=== PATIENT | female | born 1980 | race Caucasian/White ===

== ENCOUNTER 2018-09-11 07:59 | Emergency (ER) | payer BC, OTHER ==
[2018-09-11] MEDS ORDERED: Lactated Ringers 1,000 ML ONE (08:37)
[2018-09-11] MEDS ORDERED: Ketorolac 30 MG/ML SDV IVPUSH ONE (08:44)
[2018-09-11 08:52] LABS: CHLORIDE,CL 102 mEq/L (98-106); SODIUM,NA 139 mEq/L (136-145)
[2018-09-11] MEDS ORDERED: Lactated Ringers 1,000 ML IV SCH (09:00)
[2018-09-11] MEDS ORDERED: Ondansetron 4 MG/2 ML SDV IVPUSH PRN (09:01)
--- NOTE | 2018-09-11 12:23 | EDM.PDOC ---
ED HPI GENERAL MEDICAL PROBLEM - General Chief Complaint: General Stated Complaint: BACK PAIN Time Seen by Provider: 09/11/18 08:43 Source of Information: Reports: Patient History Limitations: Reports: No Limitations - History of Present Illness INITIAL COMMENTS - FREE TEXT/NARRATIVE: Denise is a 38 yo female who presents to the ER ambulatory with concerns of right pelvic pain radiating into her right flank area. She admits she felt fine upon waking up this morning and went to work out on the treadmill. She states the pain was abrupt onset in the groin and started getting back/flank pain roughly an hour later. She states it would make her double over. States her back pain initially worsened with movement and she was unable to find a comfortable position. She found that by sitting up it would relieve some discomfort and if she lied back and relaxed it seemed to make the pain worse. She states she took some ibuprofen with no relief. Tried getting into the clinic and was scheduled at 10:00am this morning. Pain intensified and was unable to wait that long. She states her last period was August 19 and it has been normal. She states is unlikely with history of tubal after her last 2 years ago. She hasn't had any change in bowel habits. States she typically only has a bowel movement every couple of days. She denies any fevers. The pain has caused her to be quite nauseated but denies any vomiting. Back Pain Score (Numeric/FACES): 6 Pelvic Pain Score (Numeric/FACES): 3 - Related Data Allergies Allergy/AdvReac Type Severity Reaction Status Date / Time amoxicillin Allergy Cannot Verified 09/11/18 08:13 Remember Home Meds: Home Meds . [No Known Home Meds] 09/11/18 [History] Past Medical History DIRECTOR FAMILY History: Reports: - Past Surgical History HEENT Surgical History: Reports: Oral Surgery, Tonsillectomy Musculoskeletal Surgical History: Reports: Other (See Below) Other Musculoskeletal Surgeries/Procedures:: ACL SURGERY. BREAST REDUCTION Social & Family History - Family History Family Medical History: Noncontributory - Tobacco Use Smoking Status *Q: Never Smoker - Caffeine Use Caffeine Use: Reports: Coffee, Soda - Recreational Drug Use Recreational Drug Use: No ED ROS GENERAL - Review of Systems Review Of Systems: See Below Constitutional: Denies: Fever, Chills HEENT: Reports: No Symptoms Respiratory: Reports: No Symptoms Cardiovascular: Reports: No Symptoms Endocrine: Reports: No Symptoms GI/Abdominal: Reports: Abdominal Pain, Flatus, Nausea, Vomiting. Denies: Bloody Stool, Constipation, Diarrhea, Distension, Hematochezia, Melena : Reports: No Symptoms. Denies: Discharge, Dysuria, Hematuria, Irregular Menses, Pain, Urinary Retention Skin: Reports: No Symptoms Neurological: Reports: No Symptoms ED EXAM, GENERAL - Physical Exam Exam: See Below Exam Limited By: No Limitations General Appearance: Alert, Mild Distress, Moderate Distress. No: Lethargic Ears: Normal External Exam, Normal Canal, Hearing Grossly Normal, Normal TMs Nose: Normal Inspection, Normal Mucosa, No Blood Throat/Mouth: Normal Inspection, Normal Lips, Normal Gums, Normal Voice, No Airway Compromise Head: Atraumatic, Normocephalic Neck: Normal Inspection, Supple Respiratory/Chest: No Respiratory Distress, Lungs Clear, Normal Breath Sounds, No Accessory Muscle Use Cardiovascular: Regular Rate, Rhythm, No Murmur GI/Abdominal: Normal Bowel Sounds, Soft, No Organomegaly, No Distention, Pelvis Stable, Tender (right lower quadrant). No: Rigid, Mass Back Exam: No: CVA Tenderness (L), CVA Tenderness (R), Muscle Spasm Neurological: Alert, Oriented, Normal Cognition Psychiatric: Normal Affect, Normal Mood Skin Exam: Warm, Dry, Intact Course - Vital Signs Last Recorded V/S: Last Vital Signs Temp 97.8 F 09/11/18 08:10 Pulse 69 09/11/18 08:10 Resp 18 09/11/18 08:10 BP 105/77 09/11/18 08:10 Pulse Ox 96 09/11/18 08:10 - Orders/Labs/Meds Orders: Active Orders 24 hr Category Date Time Status Pelvis Non OB Comp [US] Stat Exams 09/11/18 08:59 Taken Labs: Laboratory Tests 09/11/18 09/11/18 09/11/18 Range/Units 08:23 08:24 08:27 WBC 7.9 (5.0-10.0) 10^3/uL RBC 4.05 (4.00-5.50) 10^6/uL Hgb 12.6 (12.0-16.0) g/dL Hct 35.8 L (37.0-47.0) % MCV 88.4 (82.0-94.0) fL MCH 31.1 (27.0-32.0) pg MCHC 35.2 (33.0-38.0) g/dL RDW Coeff of Theodore 11.6 (11.0-15.0) % Plt Count 333 (150-400) 10^3/uL Neut % (Auto) 68.3 (35-85) % Lymph % (Auto) 24.1 (10-55) % [place] % (Auto) 6.4 (0-16) % Eos % (Auto) 0.9 (0-5) % Baso % (Auto) 0.3 (0-3) % Neut # (Auto) 5.38 (1.80-7.00) 10^3/uL Lymph # (Auto) 1.90 (1.00-4.80) 10^3/uL [place] # (Auto) 0.50 (0.00-0.80) 10^3/uL Eos # (Auto) 0.07 (0.00-0.45) 10^3/uL Baso # (Auto) 0.02 10^3/uL Sodium 139 (136-145) mEq/L Potassium 4.4 (3.5-5.0) mEq/L Chloride 102 (98-106) mEq/L Carbon Dioxide 27 (21-32) mmol/L BUN 15 (7-18) mg/dL Creatinine 0.9 (0.6-1.0) mg/dL Est Cr Clr Drug Dosing 73.19 mL/min Estimated GFR (MDRD) > 60 (>=60) mL/min Glucose 95 (75-99) mg/dL Calcium 9.0 (8.4-10.1) mg/dL Total Bilirubin 0.9 (0.0-1.0) mg/dL AST 21 (15-37) U/L ALT 23 (12-78) U/L Alkaline Phosphatase 27 L (46-116) U/L C-Reactive Protein < 0.2 L (0.2-0.8) mg/dL Total Protein 7.7 (6.4-8.2) g/dL Albumin 4.2 (3.4-5.0) g/dL HCG, Qual Urine Color Yellow (YELLOW) Urine Appearance Clear (CLEAR) Urine pH 6.0 (4.5-8.0) Ur Specific Brooks 1.025 H (1.003-1.020) Urine Protein Trace H (NEGATIVE) mg/dL Urine Glucose (UA) Negative (NEGATIVE) mg/dL Urine Ketones Negative (NEGATIVE) mg/dL Urine Occult Blood Negative (NEGATIVE) Urine Nitrite Negative (NEGATIVE) Urine Bilirubin Negative (NEGATIVE) Urine Urobilinogen 1.0 (0.2-1.0) EU/dL Ur Leukocyte Esterase Large H (NEGATIVE) Urine RBC Not seen (0-5) /HPF Urine WBC 5-10 H (0-5) /HPF Ur Squamous Epith Cells Many H (NOT SEEN) /HPF Urine Bacteria Few H (NOT SEEN) /HPF 09/11/18 Range/Units 08:30 WBC (5.0-10.0) 10^3/uL RBC (4.00-5.50) 10^6/uL Hgb (12.0-16.0) g/dL Hct (37.0-47.0) % MCV (82.0-94.0) fL MCH (27.0-32.0) pg MCHC (33.0-38.0) g/dL RDW Coeff of Theodore (11.0-15.0) % Plt Count (150-400) 10^3/uL Neut % (Auto) (35-85) % Lymph % (Auto) (10-55) % [place] % (Auto) (0-16) % Eos % (Auto) (0-5) % Baso % (Auto) (0-3) % Neut # (Auto) (1.80-7.00) 10^3/uL Lymph # (Auto) (1.00-4.80) 10^3/uL [place] # (Auto) (0.00-0.80) 10^3/uL Eos # (Auto) (0.00-0.45) 10^3/uL Baso # (Auto) 10^3/uL Sodium (136-145) mEq/L Potassium (3.5-5.0) mEq/L Chloride (98-106) mEq/L Carbon Dioxide (21-32) mmol/L BUN (7-18) mg/dL Creatinine (0.6-1.0) mg/dL Est Cr Clr Drug Dosing mL/min Estimated GFR (MDRD) (>=60) mL/min Glucose (75-99) mg/dL Calcium (8.4-10.1) mg/dL Total Bilirubin (0.0-1.0) mg/dL AST (15-37) U/L ALT (12-78) U/L Alkaline Phosphatase (46-116) U/L C-Reactive Protein (0.2-0.8) mg/dL Total Protein (6.4-8.2) g/dL Albumin (3.4-5.0) g/dL HCG, Qual Negative Urine Color (YELLOW) Urine Appearance (CLEAR) Urine pH (4.5-8.0) Ur Specific Brooks (1.003-1.020) Urine Protein (NEGATIVE) mg/dL Urine Glucose (UA) (NEGATIVE) mg/dL Urine Ketones (NEGATIVE) mg/dL Urine Occult Blood (NEGATIVE) Urine Nitrite (NEGATIVE) Urine Bilirubin (NEGATIVE) Urine Urobilinogen (0.2-1.0) EU/dL Ur Leukocyte Esterase (NEGATIVE) Urine RBC (0-5) /HPF Urine WBC (0-5) /HPF Ur Squamous Epith Cells (NOT SEEN) /HPF Urine Bacteria (NOT SEEN) /HPF Meds: Medications Discontinued Medications Generic Name Dose Route Start Last Admin Trade Name Freq PRN Reason Stop Dose Admin Lactated Ringer's 1,000 mls @ 250 mls/hr 09/11/18 09:00 09/11/18 08:40 Ringers, Lactated IV 250 mls/hr ASDIRECTED ISIDRA Administration Lactated Ringer's Confirm 09/11/18 08:37 09/11/18 08:57 Ringers, Lactated Administered 09/11/18 08:38 Not Given Dose 1,000 mls @ as directed .ROUTE .STK-MED ONE Ketorolac Tromethamine 30 mg 09/11/18 08:44 09/11/18 08:57 Toradol IVPUSH 09/11/18 08:45 30 mg ONETIME ONE Administration Ondansetron HCl 4 mg 09/11/18 09:01 09/11/18 09:07 Zofran IVPUSH 4 mg Q6H PRN Administration Nausea - Re-Assessments/Exams Free Text/Narrative Re-Assessment/Exam: Initially, Denise declined any medications for discomfort but did accept Toradol intravenously. She was given 4 mg of Zofran as well and each seemed to help. Improving discomfort and pain. Laboratory work reviewed and no elevation of WBC. Urinalysis was unremarkable with no hematuria. Elected to proceed with pelvic ultrasound and a small 1.4 cm cyst was noted on the right ovary. Patient declined transvaginal ultrasound. Denise was transferred to the floor in extended ER via monitoring. Departure - Departure Time of Disposition: 12:30 Disposition: Home, Self-Care 01 Clinical Impression: Flank pain, acute, Abdominal pain - Discharge Information Instructions: Abdominal Pain, Adult, Flank Pain, Adult, [id number] Forms: ED Department Discharge Additional Instructions: 1) Toradol 10mg - 1 tablet every 8 hours as needed for pain 2) Discussed differential etiology and signs and symptoms to monitor for. If any symptoms arise as discussed, recommend reevaluation. - Problem List & Annotations (1) Abdominal pain SNOMED Code(s): 19556420 Code(s): R10.9 - UNSPECIFIED ABDOMINAL PAIN Status: Acute Qualifiers: Abdominal location: right lower quadrant Qualified Code(s): R10.31 - Right lower quadrant pain (2) Flank pain, acute SNOMED Code(s): 604434277, 474179427 Code(s): R10.9 - UNSPECIFIED ABDOMINAL PAIN Status: Acute - My Orders Last 24 Hours: My Active Orders 09/11/18 08:59 Pelvis Non OB Comp [US] Stat - Assessment/Plan Last 24 Hours: My Active Orders 09/11/18 08:59 Pelvis Non OB Comp [US] Stat Plan: Reevaluation in extended ER showed Denise to be in less distress. She requested to be discharge at this time. Discussed further evaluation with CT scan and she declined. Discussed into detail signs and symptoms for Denise to watch for. She verbalized understanding. IV fluids were stopped and patient ready for discharge home.
== END 2018-09-11 12:40 | disposition home or self-care (01) ==
LOC: CC.ED 07:59
DX: R10.31 Right lower quadrant pain (principal); Z88.1 Allergy status to other antibiotic agents
CPT/HCPCS: 36415; 76856; 80053; 81001; 84703; 85025; 86140; 96360; 96361; 96372; 99284; J1885; J2405; J7120; 96365; 96366